=== PATIENT | male | born 1995 | race Hispanic/Latino ===

== ENCOUNTER → 2016-11-24 | Outpatient (REF) | payer OTHER ==
[~2016-11-24] MED LIST: ACET30TAB PO; DOXY-278 PO
== END ==
LOC: M SMT 17:07
PROVIDERS: ATTEND Nurse Practitioner Women's Health
DX: R32 Unspecified urinary incontinence (principal); R33.9 Retention of urine, unspecified
CPT/HCPCS: 51798; 81001; 87086; 87491; 87591; G0463

== ENCOUNTER → 2016-11-25 | Outpatient (CLI) | payer OTHER ==
[2016-11-30 00:06] LABS: HSV TYPE I IgM AB <1:10 titer (<1:10); HSV TYPE II IgM ABY <1:10 titer (<1:10)
== END ==
LOC: M SMT 10:25
PROVIDERS: ATTEND Specialist
DX: R33.9 Retention of urine, unspecified (principal)

== ENCOUNTER → 2016-11-25 | Day surgery (SDC) | payer OTHER ==
[~2016-11-25] MED LIST changes: +CONRAY-60 60% 50ML VIAL (Q9961) As Ordered ONE; +HYDROmorphone HCL 1 MG/ML SYRINGE (J1170) As Ordered ONE; +KETOROLAC 60 MG/2 ML VIAL (J1885) As Ordered ONE; +LIDOCAINE 2% INJ 100 MG/5 ML SDV (FOR ANES.) As Ordered ONE; +LR 1,000 ML IV SCH; +MIDAZOLAM INJ 2 MG/2 ML VIAL (J2250) As Ordered ONE; +ONDANSETRON 4MG/2ML VIAL (J2405) As Ordered ONE; +ONDANSETRON 4MG/2ML VIAL (J2405) IV PRN; +PERCOCET 5MG/325MG TAB As Ordered ONE; +PROPOFOL 200 MG/20 ML VIAL As Ordered ONE; +cefTRIAXone SOD 2 GM in D5W MINI-BAG PLUS 50 ML IV ONE; +dexameTHASONE 4 MG/ML 1ML VIAL (J1100) As Ordered ONE; +fentaNYL 100 MCG/2 ML INJECTION (J3010) As Ordered ONE; +fentaNYL 100 MCG/2 ML INJECTION (J3010) IV PRN
[2016-11-25] MEDS: PERCOCET 5MG/325MG TAB PO PRN ×2 (17:48→18:13)
[2016-11-25] MEDS: HYDROmorphone HCL 1 MG/ML SYRINGE (J1170) IV PRN ×5 (17:50→18:10)
--- NOTE | 2016-11-25 19:21 | RO ---
DATE OF PROCEDURE: 11/25/2016 PREOPERATIVE DIAGNOSIS: Urethral stricture. POSTOPERATIVE DIAGNOSIS: Urethral stricture. OPERATIVE PROCEDURE: Cystoscopy with internal optical urethrotomy and placement of a Pompa catheter. SURGEON: Dr. Stephanie Stokes ANESTHESIA: General. MEDICATIONS: Rocephin 2 grams preoperatively. DRAINS: #16-Greek Pompa catheter. FINDINGS: Abnormal right ureteral orifice of questionable etiology. INDICATIONS FOR PROCEDURE: The patient is a 21-year-old male with symptoms since the end of August with urinary frequency and urinating small amounts and new onset of nocturnal enuresis. He was seen in the office and a postvoid residual had shown 438 mL and a catheter was unable to be placed. He had been given oxybutynin in the past for bed wetting, but states that it is only made the problem worse. Today I did a cystoscopy on him and saw a very tight bulbar urethral stricture. I sent him for a retrograde urethrogram and they were unable to see how long or significant the stricture was. It was in the bulbar urethral area. After discussing all different options, alternatives, risks, and benefits it was decided to bring him emergently to the operating room for an incision of the stricture. We discussed that post procedurally he should learn how to do self dilation or that strictures do tend to recur. We will also do a complete workup for sexually transmitted diseases. DESCRIPTION OF PROCEDURE: The patient was brought into the operating room. Sequential compression devices were in place along with thromboembolism deterrents (STEPHANI) stockings. Preoperative antibiotics had been given with Rocephin 2 grams. At this point, general anesthesia was induced. The patient was then placed in the lithotomy position and careful attention was paid that his pressure points were well padded and protected. Next, a specialized scope was inserted for direct vision urethrotomy. When the stricture was seen, I was able to place a knife through and make a cut and one cut was enough to be able to pass a #25-Greek cystoscope through. There was no prostatic obstruction and the urethral sphincter was intact. Upon entering the bladder though he also had an abnormal right ureteral orifice and this was extremely enlarged. The left ureteral orifice appeared to be normal. There was no stones, erythematous patches or other lesions seen in the bladder. He did have very significant trabeculation noted throughout the bladder with some cellule formation showing long-term obstruction. At this point, I visualized where the stricture was and used a knife again to open this completely. At the completion, a #16-Greek Pompa catheter was placed and 5 mL were placed in the lung. He will follow up in 1 week for a Pompa catheter removal and we will teach and how to self dilate. I also would recommend at least a renal ultrasound for the abnormal right ureteral orifice.
[2016-11-25 21:15] VITALS: BP 160/80
== END | disposition home or self-care (01) ==
LOC: M SDC 13:49
PROVIDERS: ATTEND Specialist
DX: N35.9 Urethral stricture, unspecified (principal); R33.9 Retention of urine, unspecified
CPT/HCPCS: 36415; 52276; 74455; 86695; 86696; 86780; J0696; J1100; J1170; J1885; J2250; J2405; J3010; Q9958; Q9960

== ENCOUNTER → 2016-11-25 | Outpatient (CLI) | payer OTHER ==
[~2016-11-25] MED LIST changes: +CONRAY-43 43% 50ML VIAL (Q9960) As Ordered ONE; -CONRAY-60 60% 50ML VIAL (Q9961) As Ordered ONE; +CYSTO-CONRAY II 17.2% 250ML VIAL (Q9958) As Ordered ONE; -HYDROmorphone HCL 1 MG/ML SYRINGE (J1170) As Ordered ONE; -KETOROLAC 60 MG/2 ML VIAL (J1885) As Ordered ONE; -LIDOCAINE 2% INJ 100 MG/5 ML SDV (FOR ANES.) As Ordered ONE; -LR 1,000 ML IV SCH; -MIDAZOLAM INJ 2 MG/2 ML VIAL (J2250) As Ordered ONE; -ONDANSETRON 4MG/2ML VIAL (J2405) As Ordered ONE; -ONDANSETRON 4MG/2ML VIAL (J2405) IV PRN; -PERCOCET 5MG/325MG TAB As Ordered ONE; -PROPOFOL 200 MG/20 ML VIAL As Ordered ONE; -cefTRIAXone SOD 2 GM in D5W MINI-BAG PLUS 50 ML IV ONE; -dexameTHASONE 4 MG/ML 1ML VIAL (J1100) As Ordered ONE; -fentaNYL 100 MCG/2 ML INJECTION (J3010) As Ordered ONE; -fentaNYL 100 MCG/2 ML INJECTION (J3010) IV PRN
--- NOTE | 2016-11-25 12:12 | REP ---
RETROGRADE URETHROGRAM: 11/25/2016. Clinical history: Urinary retention, possible stricture. Findings: No prior study. Retrograde injection of Conray 43 with a balloon catheter at the urethral meatus. There is a tight stricture at the junction of the posterior and anterior urethra. Contrast into the posterior urethra, but does not reach the bladder due to this tight stricture proximal to it. There are no other strictures or filling defects evident. Impression: 1. Tight stricture of the urethra at the junction of the anterior and posterior urethra. Contrast could not reach the bladder although filling the distal half of the posterior urethra with time. No other filling defects or strictures identified. Signed by Jesse Blanco MD 11/25/2016 05:50 P
== END ==
LOC: M RAD 10:59
PROVIDERS: ATTEND Specialist
DX: R33.9 Retention of urine, unspecified (principal)

== ENCOUNTER → 2016-12-23 | Outpatient (CLI) | payer OTHER ==
[~2016-12-23] MED LIST changes: -CONRAY-43 43% 50ML VIAL (Q9960) As Ordered ONE; -CYSTO-CONRAY II 17.2% 250ML VIAL (Q9958) As Ordered ONE
--- NOTE | 2016-12-23 20:46 | REP ---
Clinical: Urinary retention. Technique: Real time rios scale and color evaluation of the kidneys and bladder. Findings: The right kidney is normal in reniform shape but appears mildly atrophic with mild hydronephrosis and measures 8.6 x 4.0 x 3.5 cm. No evidence for nephrolithiasis or renal mass lesion. The left kidney measures 12.1 x 4.9 x 5.2 cm and is normal in reniform shape and echogenicity without hydronephrosis, nephrolithiasis or renal mass lesion. The bladder measures 8.5 x 7.0 x 5.9 cm without wall thickening. Left ureteral jet noted. Right ureteral jet not identified. Impression: Renal ultrasound as described above. Mild right-sided hydronephrosis noted. Signed by Td Pike MD 12/23/2016 05:21 P
== END ==
LOC: M RAD 14:38
PROVIDERS: ATTEND Nurse Practitioner Women's Health
DX: R33.9 Retention of urine, unspecified (principal)

== ENCOUNTER → 2017-01-10 | Outpatient (CLI) | payer OTHER ==
[~2017-01-10] MED LIST changes: +FUROSEMIDE 20 MG/2 ML VIAL (J1940) As Ordered ONE
--- NOTE | 2017-01-10 10:44 | REP ---
Nuclear renal scintigraphy with GFR assessment, differential flow and function analysis, and post Lasix renography: History: Atrophy of the right kidney. Hydronephrosis. Comparison renal sonography December 23, 2016. Technique: 3.2 mCi of technetium-99m DTPA is administered intravenously and renal regions of interest are plotted for glomerular filtration analysis. Following this, 8.8 mCi technetium 99m MAG 3 is injected and a posterior flow and excretory phase images are acquired. Renal cortical regions of interest are drawn and time activity curves are plotted for renal function analysis. 20 mg of intravenous Lasix is administered and post Lasix venography is carried out. Findings: Differential function analysis on the DTPA portion of the study is asymmetric 71% of counts coming from the left kidney and 29% from the right. The estimated GFR from the right kidney is 81.9 mL/minute and that from the left is 33.6 mL/minute for a total calculated GFR of of 115.5 mL/minute. The normalized GFR per patient body surface area is 113 mL/minute which is in the normal range. The MAG 3 portion of the study demonstrates asymmetric renal size. Renal flow is symmetrical. The right kidney is smaller than the left. Differential renal function analysis is asymmetric with 82% of overall renal counts coming from the left kidney and 18% coming from the right kidney. Time to peak activity is normal bilaterally at 1.0 minutes on the left and 0.7 minutes on the right. Time to half max activity is normal bilaterally measured at 7.7 minutes on the left and 9.3 minutes on the right. There is no evidence of obstructive uropathy. Post Lasix renography is normal bilaterally with time to half Lasix on the left at 4.5 minutes and on the right at 5.6 minutes. Impression: Right kidney is quite a bit smaller than the left and differential function analysis reflects this. There is no scintigraphic evidence of significant obstructive uropathy. Signed by Roberto Triana MD 01/10/2017 12:18 P
== END ==
LOC: M RAD 07:00
PROVIDERS: ATTEND Specialist
DX: N13.39 Other hydronephrosis (principal); N26.1 Atrophy of kidney (terminal)